=== PATIENT | female | born 1955 | race African-American/Black ===

== ENCOUNTER 2019-03-07 10:11 | Inpatient (IN) | payer MEDICAID, OTHER ==
[~2019-03-07] VITALS: Ht 165.1 cm; Wt 65.8 kg
[~2019-03-07 10:11] MED LIST: MULT-1146 PO
[2019-03-07] MEDS ORDERED: SODIUM CHLORIDE 0.9% 1,000 ML IV ONE (10:47)
[2019-03-07 11:43] LABS: BASOPHILS % 0.5 % (0.0-2.0); EOSINOPHILS % 0.9 % (0.0-5.0); HEMATOCRIT. 42.9 % (36.0-48.0); HEMOGLOBIN. 14.7 g/dL (12.0-16.0); LYMPHOCYTES % 18.4 % (20.0-50.0); MEAN CORPUSCULAR HEMOGLOBIN 31.9 pg (28.0-32.0); MEAN CORPUSCULAR VOLUME 92.9 fL (81.0-99.0); MONOCYTES % 7.5 % (2.0-8.0); NEUTROPHILS % 72.7 % (40.0-76.0); PLATELET 280 x1000/uL (130-400); RED BLOOD CELL COUNT 4.62 mill/uL (4.2-5.4); RED CELL DISTRIBUTION WIDTH 13.6 % (11.6-14.6)
[2019-03-07 11:52] LABS: CHLORIDE 111 mEq/L (98-107); PROTHROMBIN TIME 10.5 sec (9.6-11.0)
[2019-03-07 11:59] LABS: ETHANOL BLOOD < 10 mg/dL
[2019-03-07 13:28] LABS: CLARITY URINE TURBID (CLEAR); COLOR URINE YELLOW (YELLOW); KETONES URINE NEGATIVE (NEGATIVE); LEUKOCYTE ESTERASE URINE 3+ (NEGATIVE); NITRITE URINE POSITIVE (NEGATIVE); OCCULT BLOOD URINE 2+ (NEGATIVE); PROTEIN URINE NEGATIVE (NEGATIVE); SPECIFIC GRAVITY URINE 1.018 (1.005-1.030)
[2019-03-07] MEDS ORDERED: CEFTRIAXONE 1 G PREMIX 50 ML IV ONE (13:45)
[2019-03-07 13:55] LABS: *COCAINE SCREEN URINE NEGATIVE (NEGATIVE); METHADONE URINE SCREEN NEGATIVE (NEGATIVE)
[2019-03-07 13:56] LABS: *AMPHETAMINES SCREEN URINE NEGATIVE (NEGATIVE); *BARBITURATES SCREEN URINE NEGATIVE (NEGATIVE); *BENZODIAZEPINES SCREEN URINE NEGATIVE (NEGATIVE); CANNABINOID URINE SCREEN NEGATIVE (NEGATIVE); OPIATES URINE SCREEN NEGATIVE (NEGATIVE)
[2019-03-07] MEDS ORDERED: ACETAMINOPHEN 325MG TABLET PO ONE (16:30)
[2019-03-07 20:00] VITALS: BP_SYST 160; BP_SYST 170; BP_DIAS 102; BP_DIAS 91
[2019-03-07] MEDS ORDERED: SODIUM CHLORIDE 0.45% 1,000 ML IV SCH (20:05)
[2019-03-07] MEDS ORDERED: MAGNESIUM/ALUMINUM HYDROXIDE/SIMETHICONE 30ML UDC PO PRN (20:15)
[2019-03-07] MEDS ORDERED: HYDROCODONE/ACETAMINOPHEN 5/325MG TABLET PO PRN (20:15)
[2019-03-07] MEDS ORDERED: DIPHENHYDRAMINE 50MG/ML VIAL IV PRN (20:15)
[2019-03-07] MEDS ORDERED: GUAIFENESIN 200MG/10ML SUGAR FREE UDC PO PRN (20:15)
[2019-03-07] MEDS ORDERED: DOCUSATE SODIUM 100MG CAPSULE PO PRN (20:15)
[2019-03-07] MEDS ORDERED: IPRATROPIUM/ALBUTEROL 0.5-3(2.5)MG/3ML NEB INH PRN (20:15)
[2019-03-07] MEDS ORDERED: HYDROMORPHONE HCL/PF 2MG/ML CPJ IV PRN (20:15)
[2019-03-07] MEDS ORDERED: NA PHOS,M-B/NA PHOS,DI-BA ENEMA 118ML PR PRN (20:15)
[2019-03-07] MEDS ORDERED: ONDANSETRON HCL 4MG/2ML INJ IV PRN (20:15)
[2019-03-07] MEDS ORDERED: LORAZEPAM 2MG/ML CPJ IV PRN (20:15)
[2019-03-07] MEDS ORDERED: ACETAMINOPHEN 325MG TABLET PO PRN (20:15)
[2019-03-07] MEDS: CLONIDINE 0.1MG TABLET PO PRN (20:39)
[2019-03-07] MEDS: METOPROLOL TARTRATE 25MG TABLET PO SCH (22:29)
[2019-03-07] MEDS: LEVOFLOXACIN 500MG PREMIX 100 ML IV SCH (22:30)
[2019-03-07] MEDS: ENOXAPARIN 40MG/0.4ML SYR SUBCUT SCH (22:31)
[2019-03-08] VITALS: BP 133/89
[2019-03-08 01:02] LABS: CHLORIDE 112 mEq/L (98-107)
[2019-03-08 04:00] VITALS: BP 162/90
[2019-03-08 06:39] LABS: BASOPHILS % 0.7 % (0.0-2.0); EOSINOPHILS % 0.9 % (0.0-5.0); HEMATOCRIT. 39.9 % (36.0-48.0); HEMOGLOBIN. 13.5 g/dL (12.0-16.0); LYMPHOCYTES % 29.4 % (20.0-50.0); MEAN CORPUSCULAR HEMOGLOBIN 31.5 pg (28.0-32.0); MEAN PLATELET VOLUME 8.7 fl (7.4-10.4); MONOCYTES % 10.4 % (2.0-8.0); NEUTROPHILS % 58.6 % (40.0-76.0); PLATELET 240 x1000/uL (130-400); RED BLOOD CELL COUNT 4.29 mill/uL (4.2-5.4); RED CELL DISTRIBUTION WIDTH 13.1 % (11.6-14.6)
[2019-03-08] MEDS: CLONIDINE 0.1MG TABLET PO PRN (06:45)
[2019-03-08 06:58] LABS: CHLORIDE 111 mEq/L (98-107)
[2019-03-08 07:09] LABS: LDL CHOLESTEROL 158 mg/dL (5-100)
[2019-03-08 07:10] LABS: HDL CHOLESTEROL 67 mg/dL (40-59)
[2019-03-08 08:00] VITALS: BP 126/93
[2019-03-08] MEDS: ASPIRIN 81MG EC TABLET PO SCH (10:29)
[2019-03-08] MEDS: AMLODIPINE 10MG TABLET PO SCH (10:29)
[2019-03-08] MEDS: METOPROLOL TARTRATE 25MG TABLET PO SCH ×2 (10:30→22:35)
[2019-03-08 12:00] VITALS: BP 143/80
[2019-03-08 17:34] LABS: PHENCYCLIDINE URINE SCREEN NEGATIVE (NEGATIVE)
[2019-03-08 20:00] VITALS: BP 132/88
[2019-03-08] MEDS: ENOXAPARIN 40MG/0.4ML SYR SUBCUT SCH (22:34)
[2019-03-08] MEDS: LEVOFLOXACIN 500MG PREMIX 100 ML IV SCH (22:36)
[2019-03-09] VITALS: BP 136/89
[2019-03-09 04:00] VITALS: BP 113/80
[2019-03-09] MEDS: AMLODIPINE 10MG TABLET PO SCH (09:32)
[2019-03-09] MEDS: ASPIRIN 81MG EC TABLET PO SCH (09:32)
[2019-03-09] MEDS: METOPROLOL TARTRATE 25MG TABLET PO SCH (09:33)
[2019-03-09 09:38] VITALS: BP 135/88
== END 2019-03-09 14:42 | DRG 463 ==
LOC: ER 10:11 → 6EST 14:05 → EDBEDREQTM 14:10 → EDBEDREQSVC 14:10 → EDBEDREQ 14:10 → ENRESERV 17:13
PROVIDERS: ADMIT Internal Medicine; ATTEND Internal Medicine
DX: N39.0 Urinary tract infection, site not specified (principal); G93.41 Metabolic encephalopathy; I69.351 Hemiplegia and hemiparesis following cerebral infarction affecting right dominant side; R65.10 Systemic inflammatory response syndrome (SIRS) of non-infectious origin without acute organ dysfunction; E86.0 Dehydration; F17.210 Nicotine dependence, cigarettes, uncomplicated; I10 Essential (primary) hypertension; Z79.899 Other long term (current) drug therapy; Z71.6 Tobacco abuse counseling
CPT/HCPCS: 36415; 71045; 80048; 80061; 80305; 80320; 81003; 84484; 87077; 87186; 93005; 96374; 99285; J0696; J1650; J1956; J7030; G0480